=== PATIENT | female | born 1955 | race Asian ===

== ENCOUNTER 2020-02-06 03:06 | Inpatient (IN) | payer MEDICARE, OTHER ==
[~2020-02-06] VITALS: Ht 162.6 cm; Wt 85.6 kg
[2020-02-06] MEDS ORDERED: SODIUM CHLORIDE 0.9% 1,000 ML IV ONE (03:15)
[2020-02-06] MEDS ORDERED: IPRATROPIUM BROMIDE 0.5 MG/2.5 ML NEB SOLUTION NEB ONE (03:15)
[2020-02-06] MEDS ORDERED: MethylPREDNISolone SOD SUCC 125 MG/2 ML VIAL IVP ONE (03:15)
[2020-02-06] MEDS ORDERED: ALBUTEROL SULFATE 5 MG/ML 20 ML NEB SOLN [BULK] NEB ONE (03:15)
[2020-02-06] MEDS ORDERED: METO-558 PO (03:24)
[2020-02-06] MEDS ORDERED: HYDR-2924 PO (03:24)
[2020-02-06] MEDS ORDERED: FOLI-130 PO (03:24)
[2020-02-06] MEDS ORDERED: LEVO88TA4 PO (03:24)
[2020-02-06 03:32] LABS: HEMATOCRIT 26.8 % (36-46); HEMOGLOBIN 8.1 g/dL (12.0-16.0); MEAN CORPUSCULAR HEMOGLOBIN 26.9 pg (26.0-34.0); MEAN CORPUSCULAR HGB CONC 30.4 G/dL (31.0-37.0); MEAN CORPUSCULAR VOLUME 89 fL (80-100); PLATELET COUNT (AUTO) 295 K/uL (150-450); RED BLOOD CELL COUNT(AUTO) 3.03 MIL/uL (4.00-5.20); RED CELL DISTRIBUTION WIDTH 17.7 % (11.5-14.5)
[2020-02-06 04:02] LABS: LACTIC ACID 1.8 mmol/L (0.4-2.0)
[2020-02-06 04:08] LABS: BAND NEUTROPHILS % (MANUAL) 4 % (0-5); LYMPHOCYTES % (MANUAL) 7 % (22-44); MONOCYTES % (MANUAL) 4 % (2-9); SEGMENTED NEUTROPHILS % 85 % (40-70)
[2020-02-06] MEDS ORDERED: FUROSEMIDE 40 MG/4 ML VIAL IVP ONE ×2 (04:15→10:00)
[2020-02-06 04:26] LABS: ALBUMIN 3.3 g/dL (3.4-5.0); BILIRUBIN,TOTAL 0.5 mg/dL (0.1-1.0); CALCIUM, TOTAL 8.2 mg/dL (8.8-10.5); CREATININE 8.14 mg/dL (0.60-1.30); MAGNESIUM 1.6 mg/dL (1.80-2.40); TOTAL PROTEIN, SERUM 8.1 g/dL (6.4-8.2)
[2020-02-06 04:30] LABS: POTASSIUM 6.1 mmol/L (3.5-5.1)
[2020-02-06] MEDS ORDERED: DEXTROSE 50%-WATER 25 GM/50 ML SYRINGE IVP ONE ×2 (04:45→15:15)
[2020-02-06] MEDS ORDERED: SODIUM BICARBONATE [ADULT] 8.4% 50 MEQ/50 ML SYRINGE IVP ONE ×2 (04:45→11:00)
[2020-02-06] MEDS ORDERED: INSULIN REGULAR, HUMAN 100 UNITS/ML IVP ONE ×2 (04:45→15:15)
[2020-02-06] MEDS ORDERED: CALCIUM GLUCONATE 100 MG/ML 10 ML IVP ONE ×2 (04:45→10:00)
[2020-02-06] MEDS ORDERED: SODIUM ZIRCONIUM CYCLOSILICATE 5 GM POWDER PACKET PO ONE (04:45)
[2020-02-06] MEDS ORDERED: 0.9% SODIUM CHLORIDE 10 ML SYRINGE IVP PRN ×2 (05:00→05:15)
[2020-02-06] MEDS ORDERED: ONDANSETRON HCL 4 MG/2 ML VIAL IVP PRN ×2 (05:00→05:15)
[2020-02-06] MEDS ORDERED: ACETAMINOPHEN 325 MG TABLET PO PRN (05:00)
[2020-02-06] MEDS ORDERED: DEXTROSE 5%-WATER 50 ML IV ONE (05:05)
[2020-02-06] MEDS ORDERED: ZOLPIDEM TARTRATE 5 MG TABLET PO PRN (05:15)
[2020-02-06] MEDS ORDERED: IOVERSOL 350 MG/ML 100 ML VIAL ONE (05:24)
[2020-02-06 05:31] LABS: ABG A-A DIFF O2 29.2 mmHg (10-20.0); ABG BASE EXCESS -23.7 mmol/L (-2.0-3.0); ABG CARBOXYHEMOGLOBIN 1.1 % (0.0-1.5); ABG METHEMOGLOBIN 0.3 % (0.0-1.5); ABG OXYGEN CONTENT 11.2 mL/dL (15.0-23.0); ABG OXYGEN SATURATION 96.1 % (95.0-98.0); ABG OXYHEMOGLOBIN 94.8 % (94.0-100.0); ABG PCO2 24 mmHg (35-45); ABG TOTAL HEMOGLOBIN 8.3 G/dL (12.0-18.0); PO2, ARTERIAL BG 91.8 mmHg (79.0-87.0); SOURCE, BLOOD GAS ARTERIAL; TEMPERATURE, FAHRENHEIT, BG 97.1 FAHREN (96.0-98.6)
[2020-02-06 05:36] LABS: GLUCOSE,POINT OF CARE 264 MG/DL (70-110)
[2020-02-06 05:44] LABS: ABG HCO3 7.9 mmol/L (22.0-26.0); O2 DEVICE,BLOOD GAS ROOM AIR (ROOM AIR); SITE, BLOOD GAS LFT RADIAL
[2020-02-06] MEDS: LEVOTHYROXINE SODIUM 88 MCG TABLET PO SCH (05:52)
[2020-02-06] MEDS ORDERED: SODIUM BICARBONATE 150 MEQ in DEXTROSE 5%-WATER 1,000 ML IV ONE (06:30)
[2020-02-06] MEDS ORDERED: SODIUM BICARBONATE 150 MEQ in SODIUM CHLORIDE 0.9% 1,000 ML IV ONE (06:30)
[2020-02-06 07:11] LABS: % IRON SATURATION 12.9 % (22-44)
[2020-02-06] MEDS: SODIUM POLYSTYRENE SULFONATE 15 GM/60 ML SUSPENSION BOTTLE PR SCH ×2 (08:00→12:00)
[2020-02-06] MEDS: FOLIC ACID 1 MG TABLET PO SCH (08:19)
[2020-02-06] MEDS: PANTOPRAZOLE SODIUM 40 MG DR TABLET PO SCH (08:19)
[2020-02-06 08:51] LABS: PHOSPHORUS 8.8 mg/dL (2.5-4.9)
[2020-02-06] MEDS ORDERED: METOPROLOL SUCCINATE 50 MG ER TABLET PO SCH (09:00)
[2020-02-06] MEDS: LORazepam 2 MG/ML VIAL IVP PRN ×2 (10:05→21:07)
[2020-02-06] MEDS: EPOETIN ALFA 10,000 UNITS/ML 2 ML VIAL SQ SCH (10:41)
[2020-02-06 10:45] LABS: ABG BASE EXCESS -24.2 mmol/L (-2.0-3.0); ABG METHEMOGLOBIN 0.3 % (0.0-1.5); ABG OXYGEN CONTENT 12.4 mL/dL (15.0-23.0); ABG OXYGEN SATURATION 98.7 % (95.0-98.0); ABG OXYHEMOGLOBIN 97.4 % (94.0-100.0); ABG PCO2 30 mmHg (35-45); ABG TOTAL HEMOGLOBIN 8.8 G/dL (12.0-18.0); PO2, ARTERIAL BG 164.3 mmHg (79.0-87.0); SOURCE, BLOOD GAS ARTERIAL; TEMPERATURE, FAHRENHEIT, BG 98.6 FAHREN (96.0-98.6)
[2020-02-06 10:46] LABS: ABG HCO3 7.6 mmol/L (22.0-26.0); ABG PH 6.992 (7.35-7.450); O2 DEVICE,BLOOD GAS BIPAP (ROOM AIR); SITE, BLOOD GAS LFT RADIAL
[2020-02-06 11:01] LABS: ALBUMIN 3.2 g/dL (3.4-5.0); BILIRUBIN,TOTAL 0.4 mg/dL (0.1-1.0); CALCIUM, TOTAL 8.5 mg/dL (8.8-10.5); CREATININE 7.92 mg/dL (0.60-1.30); TOTAL PROTEIN, SERUM 8.4 g/dL (6.4-8.2)
[2020-02-06 11:05] LABS: POTASSIUM 6.2 mmol/L (3.5-5.1)
[2020-02-06] MEDS ORDERED: FentaNYL CITRATE-PF 100 MCG/2 ML VIAL ONE (11:26)
[2020-02-06] MEDS ORDERED: MIDAZOLAM HCL 2 MG/2 ML VIAL ONE (11:26)
[2020-02-06 11:30] VITALS: BP 128/73
[2020-02-06 11:32] LABS: PROTHROMBIN TIME 10.6 SEC (9.4-11.6)
[2020-02-06] MEDS ORDERED: MIDAZOLAM HCL 2 MG/2 ML VIAL IVP ONE (11:45)
[2020-02-06] MEDS ORDERED: FentaNYL CITRATE-PF 100 MCG/2 ML VIAL IVP ONE (11:45)
[2020-02-06] MEDS ORDERED: SODIUM CHLORIDE 0.9% 500 ML IV ONE ×2 (11:55→12:11)
[2020-02-06 12:00] VITALS: BP 206/102
[2020-02-06] MEDS ORDERED: NOREPINEPHRINE 4 MG/D5%-WATER 250 ML IV PRN (12:01)
[2020-02-06] MEDS ORDERED: HEPARIN SODIUM,PORCINE 100 UNITS/ML 5 ML VIAL IVP ONE ×2 (12:15)
[2020-02-06] MEDS: PROPOFOL 1000 MG/ISO-OSM 100 ML IV PRN ×3 (13:06→20:09)
[2020-02-06 14:00] VITALS: BP 109/46
[2020-02-06 14:56] LABS: ABG A-A DIFF O2 356.1 mmHg (10-20.0); ABG BASE EXCESS -21.8 mmol/L (-2.0-3.0); ABG CARBOXYHEMOGLOBIN 0.6 % (0.0-1.5); ABG METHEMOGLOBIN 0.1 % (0.0-1.5); ABG OXYGEN SATURATION 99.4 % (95.0-98.0); ABG OXYHEMOGLOBIN 98.7 % (94.0-100.0); ABG PCO2 41 mmHg (35-45); ABG TOTAL HEMOGLOBIN 9.5 G/dL (12.0-18.0); PO2, ARTERIAL BG 316.5 mmHg (79.0-87.0); SOURCE, BLOOD GAS ARTERIAL
[2020-02-06 14:59] LABS: ABG PH 6.989 (7.35-7.450); O2 DEVICE,BLOOD GAS VENTILATOR (ROOM AIR); PEEP,BG 5 cm H2O; SITE, BLOOD GAS ARTERIAL LINE; SPONTANEOUS VT, BG 398 ml; VT, ABG 400 ml
[2020-02-06 16:00] VITALS: BP 130/74
[2020-02-06] MEDS: HEPARIN SODIUM,PORCINE 5,000 UNITS/ML VIAL SQ SCH (16:27)
[2020-02-06 16:54] LABS: ABG A-A DIFF O2 204.9 mmHg (10-20.0); ABG BASE EXCESS -2.4 mmol/L (-2.0-3.0); ABG CARBOXYHEMOGLOBIN 0.5 % (0.0-1.5); ABG HCO3 22.8 mmol/L (22.0-26.0); ABG METHEMOGLOBIN 0.3 % (0.0-1.5); ABG OXYGEN CONTENT 13.3 mL/dL (15.0-23.0); ABG OXYGEN SATURATION 98.9 % (95.0-98.0); ABG OXYHEMOGLOBIN 98.1 % (94.0-100.0); ABG PCO2 36 mmHg (35-45); ABG PH 7.406 (7.35-7.450); ABG TOTAL HEMOGLOBIN 9.3 G/dL (12.0-18.0); O2 DEVICE,BLOOD GAS VENTILATOR (ROOM AIR); PEEP,BG 5 cm H2O; PO2, ARTERIAL BG 183.7 mmHg (79.0-87.0); SITE, BLOOD GAS ARTERIAL LINE; SOURCE, BLOOD GAS ARTERIAL; TEMPERATURE, FAHRENHEIT, BG 97.6 FAHREN (96.0-98.6); VT, ABG 400 ml
[2020-02-06] MEDS ORDERED: HEPARIN SODIUM,PORCINE 1,000 UNITS/ML VIAL ONE (17:22)
[2020-02-06 20:00] VITALS: BP 127/63
[2020-02-06] MEDS ORDERED: *CLINICAL-RX DOSING [ENTER DRUG IN COMMENTS] CLINICAL ONE (21:00)
[2020-02-06] MEDS ORDERED: SODIUM CHLORIDE 0.9% 250 ML IV ONE (22:12)
[2020-02-07] VITALS (9 sets, daily range): BP systolic 103–191; BP diastolic 65–86
[2020-02-07] MEDS: LevETIRAcetam 500 MG in DEXTROSE 5%-WATER 100 ML IV SCH ×2 (00:01→22:35)
[2020-02-07] MEDS: HEPARIN SODIUM,PORCINE 5,000 UNITS/ML VIAL SQ SCH ×3 (00:03→16:22)
[2020-02-07] MEDS ORDERED: ROCURONIUM BROMIDE 10 MG/ML 5 ML VIAL IVP ONE (06:11)
[2020-02-07] MEDS ORDERED: LIDOCAINE/PF 2% 5 ML VIAL IM ONE (06:11)
[2020-02-07] MEDS ORDERED: ETOMIDATE 2 MG/ML 10 ML VIAL IVP ONE (06:11)
[2020-02-07 06:19] LABS: BASOPHILS % (AUTO) 0.3 % (0.0-2.0); EOSINOPHILS % (AUTO) 0 % (1.0-6.0); LYMPHOCYTES # (AUTO) 0.5 K/uL (1.0-4.8); LYMPHOCYTES % (AUTO) 4.8 % (22.0-44.0); MEAN CORPUSCULAR HEMOGLOBIN 27.8 pg (26.0-34.0); MEAN CORPUSCULAR HGB CONC 33.5 G/dL (31.0-37.0); MEAN CORPUSCULAR VOLUME 83 fL (80-100); MONOCYTES % (AUTO) 10.4 % (2.0-9.0); NEUTROPHILS % (AUTO) 84.5 % (40.0-70.0); PLATELET COUNT (AUTO) 219 K/uL (150-450); RED BLOOD CELL COUNT(AUTO) 2.35 MIL/uL (4.00-5.20); RED CELL DISTRIBUTION WIDTH 16.2 % (11.5-14.5)
[2020-02-07 06:43] LABS: ALBUMIN 2.2 g/dL (3.4-5.0); BILIRUBIN,TOTAL 0.5 mg/dL (0.1-1.0); CALCIUM, TOTAL 8.4 mg/dL (8.8-10.5); CREATININE 4.33 mg/dL (0.60-1.30); MAGNESIUM 1.8 mg/dL (1.80-2.40); POTASSIUM 3.6 mmol/L (3.5-5.1); THYROID STIMULATING HORMONE 18.01 uIU/mL (0.36-3.74); TOTAL PROTEIN, SERUM 5.9 g/dL (6.4-8.2)
[2020-02-07 07:20] LABS: HEMOGLOBIN 6.5 g/dL (12.0-16.0)
[2020-02-07 07:21] LABS: HEMATOCRIT 19.5 % (36-46)
[2020-02-07] MEDS: LEVOTHYROXINE SODIUM 88 MCG TABLET PO SCH (07:48)
[2020-02-07] MEDS: FOLIC ACID 1 MG TABLET PO SCH (08:36)
[2020-02-07] MEDS: PANTOPRAZOLE SODIUM 40 MG DR TABLET PO SCH (08:36)
[2020-02-07] MEDS: PROPOFOL 1000 MG/ISO-OSM 100 ML IV PRN ×4 (08:52→20:30)
[2020-02-07 09:19] LABS: BASOPHILS % (AUTO) 0.2 % (0.0-2.0); EOSINOPHILS % (AUTO) 0 % (1.0-6.0); LYMPHOCYTES # (AUTO) 0.5 K/uL (1.0-4.8); MEAN CORPUSCULAR HGB CONC 32.4 G/dL (31.0-37.0); MEAN CORPUSCULAR VOLUME 83 fL (80-100); MONOCYTES # (AUTO) 0.8 K/uL (0.1-1.0); MONOCYTES % (AUTO) 8.7 % (2.0-9.0); NEUTROPHILS # (AUTO) 8.2 K/uL (1.8-7.7); PLATELET COUNT (AUTO) 223 K/uL (150-450); RED BLOOD CELL COUNT(AUTO) 2.34 MIL/uL (4.00-5.20); RED CELL DISTRIBUTION WIDTH 16.5 % (11.5-14.5)
[2020-02-07 09:22] LABS: HEMATOCRIT 19.5 % (36-46); HEMOGLOBIN 6.3 g/dL (12.0-16.0); NEUTROPHILS % (AUTO) 86.1 % (40.0-70.0)
[2020-02-07] MEDS ORDERED: SODIUM CHLORIDE 0.9% 100 ML ONE (11:55)
[2020-02-07] MEDS ORDERED: IOVERSOL 350 MG/ML 100 ML VIAL ONE (11:55)
[2020-02-07] MEDS: LORazepam 2 MG/ML VIAL IVP PRN (16:22)
[2020-02-07 20:39] LABS: HEMATOCRIT 24.6 % (36-46); HEMOGLOBIN 8.1 g/dL (12.0-16.0)
[2020-02-07] MEDS ORDERED: SODIUM CHLORIDE 0.9% 250 ML IV ONE (22:06)
[2020-02-07] MEDS: FentaNYL CITRATE PF 500 MCG in DEXTROSE 5%-WATER 90 ML IV PRN (22:14)
[2020-02-07] MEDS: MIDAZOLAM HCL 200 MG in DEXTROSE 5%-WATER 160 ML IV PRN (22:17)
[2020-02-07] MEDS ORDERED: METOPROLOL TARTRATE 25 MG TABLET PO ONE (23:45)
[2020-02-08] VITALS (7 sets, daily range): BP systolic 145–204; BP diastolic 80–98
[2020-02-08] MEDS: HEPARIN SODIUM,PORCINE 5,000 UNITS/ML VIAL SQ SCH ×3 (00:15→16:01)
[2020-02-08] MEDS: PROPOFOL 1000 MG/ISO-OSM 100 ML IV PRN ×6 (01:07→21:01)
[2020-02-08] MEDS: FentaNYL CITRATE PF 500 MCG in DEXTROSE 5%-WATER 90 ML IV PRN ×5 (04:31→23:15)
[2020-02-08] MEDS: LEVOTHYROXINE SODIUM 88 MCG TABLET PO SCH (05:55)
[2020-02-08 06:39] LABS: BASOPHILS % (AUTO) 0.1 % (0.0-2.0); EOSINOPHILS % (AUTO) 0.1 % (1.0-6.0); HEMATOCRIT 22.5 % (36-46); HEMOGLOBIN 7.4 g/dL (12.0-16.0); LYMPHOCYTES # (AUTO) 0.7 K/uL (1.0-4.8); LYMPHOCYTES % (AUTO) 8.4 % (22.0-44.0); MEAN CORPUSCULAR HEMOGLOBIN 27.7 pg (26.0-34.0); MEAN CORPUSCULAR HGB CONC 33.1 G/dL (31.0-37.0); MEAN CORPUSCULAR VOLUME 84 fL (80-100); MONOCYTES # (AUTO) 0.8 K/uL (0.1-1.0); MONOCYTES % (AUTO) 9.9 % (2.0-9.0); NEUTROPHILS # (AUTO) 6.9 K/uL (1.8-7.7); NEUTROPHILS % (AUTO) 81.5 % (40.0-70.0); PLATELET COUNT (AUTO) 224 K/uL (150-450); RED BLOOD CELL COUNT(AUTO) 2.68 MIL/uL (4.00-5.20)
[2020-02-08 07:13] LABS: CALCIUM, TOTAL 8.4 mg/dL (8.8-10.5); CREATININE 3.14 mg/dL (0.60-1.30); POTASSIUM 3.2 mmol/L (3.5-5.1)
[2020-02-08] MEDS: FOLIC ACID 1 MG TABLET PO SCH (08:06)
[2020-02-08] MEDS: PANTOPRAZOLE SODIUM 40 MG DR TABLET PO SCH (08:06)
[2020-02-08] MEDS: HydrALAZINE HCL 50 MG TABLET PO SCH ×3 (08:06→21:07)
[2020-02-08] MEDS: METOPROLOL TARTRATE 25 MG TABLET PO SCH ×2 (08:07→21:06)
[2020-02-08] MEDS ORDERED: ENALAPRILAT DIHYDRATE 1.25 MG/ML VIAL IVP PRN (14:45)
[2020-02-08] MEDS: AmLODIPine BESYLATE 5 MG TABLET PO SCH ×2 (14:59→21:07)
[2020-02-08] MEDS ORDERED: VANCOMYCIN HCL 1 GM/D5% WATER 200 ML IV PRN (15:00)
[2020-02-08] MEDS ORDERED: VANCOMYCIN HCL 1.5 GM in DEXTROSE 5%-WATER 250 ML IV ONE (15:00)
[2020-02-08] MEDS: MIDAZOLAM HCL 200 MG in DEXTROSE 5%-WATER 160 ML IV PRN (17:05)
[2020-02-08] MEDS: ACETAMINOPHEN 325 MG TABLET PO PRN (21:06)
[2020-02-08] MEDS: LevETIRAcetam 500 MG in DEXTROSE 5%-WATER 100 ML IV SCH (23:57)
[2020-02-09] VITALS: BP 147/76
[2020-02-09] MEDS: HEPARIN SODIUM,PORCINE 5,000 UNITS/ML VIAL SQ SCH ×4 (00:19→23:59)
[2020-02-09] MEDS: FentaNYL CITRATE PF 500 MCG in DEXTROSE 5%-WATER 90 ML IV PRN ×5 (03:47→21:37)
[2020-02-09 04:00] VITALS: BP 161/79
[2020-02-09] MEDS: LEVOTHYROXINE SODIUM 88 MCG TABLET PO SCH (06:31)
[2020-02-09 06:53] LABS: BASOPHILS % (AUTO) 0.2 % (0.0-2.0); EOSINOPHILS % (AUTO) 0.8 % (1.0-6.0); HEMATOCRIT 29.1 % (36-46); HEMOGLOBIN 8.9 g/dL (12.0-16.0); LYMPHOCYTES # (AUTO) 0.8 K/uL (1.0-4.8); LYMPHOCYTES % (AUTO) 5.7 % (22.0-44.0); MEAN CORPUSCULAR HEMOGLOBIN 26.3 pg (26.0-34.0); MEAN CORPUSCULAR HGB CONC 30.6 G/dL (31.0-37.0); MEAN CORPUSCULAR VOLUME 86 fL (80-100); MONOCYTES # (AUTO) 1.8 K/uL (0.1-1.0); MONOCYTES % (AUTO) 12.5 % (2.0-9.0); NEUTROPHILS # (AUTO) 11.6 K/uL (1.8-7.7); NEUTROPHILS % (AUTO) 80.8 % (40.0-70.0); PLATELET COUNT (AUTO) 237 K/uL (150-450); RED BLOOD CELL COUNT(AUTO) 3.38 MIL/uL (4.00-5.20); RED CELL DISTRIBUTION WIDTH 16.3 % (11.5-14.5)
[2020-02-09 07:08] LABS: ALBUMIN 2.4 g/dL (3.4-5.0); BILIRUBIN,TOTAL 0.6 mg/dL (0.1-1.0); CALCIUM, TOTAL 8.2 mg/dL (8.8-10.5); MAGNESIUM 1.8 mg/dL (1.80-2.40); PHOSPHORUS 4.6 mg/dL (2.5-4.9); POTASSIUM 3.6 mmol/L (3.5-5.1); TOTAL PROTEIN, SERUM 7.1 g/dL (6.4-8.2)
[2020-02-09] MEDS: EPOETIN ALFA 10,000 UNITS/ML 2 ML VIAL SQ SCH (08:25)
[2020-02-09] MEDS: FOLIC ACID 1 MG TABLET PO SCH (08:25)
[2020-02-09] MEDS: AmLODIPine BESYLATE 10 MG TABLET PO SCH (08:25)
[2020-02-09] MEDS: HydrALAZINE HCL 50 MG TABLET PO SCH ×4 (08:26→22:37)
[2020-02-09] MEDS: METOPROLOL TARTRATE 25 MG TABLET PO SCH ×2 (08:26→20:56)
[2020-02-09] MEDS: PANTOPRAZOLE SODIUM 40 MG DR TABLET PO SCH (08:26)
[2020-02-09] MEDS: ACETAMINOPHEN 325 MG TABLET PO PRN (10:51)
[2020-02-09] MEDS ORDERED: PIPERACILLIN SODIUM/TAZOBACTAM 0.75 GM in DEXTROSE 5%-WATER 50 ML IV PRN (12:30)
[2020-02-09] MEDS: PIPERACILLIN SODIUM/TAZOBACTAM 2.25 GM in DEXTROSE 5%-WATER 50 ML IV SCH ×2 (12:42→20:56)
[2020-02-09] MEDS ORDERED: SODIUM CHLORIDE 0.9% 2,000 ML ONE (15:32)
[2020-02-09] MEDS: MIDAZOLAM HCL 200 MG in DEXTROSE 5%-WATER 160 ML IV PRN (19:51)
[2020-02-09 20:00] VITALS: BP 137/70
[2020-02-09] MEDS: LevETIRAcetam 500 MG in DEXTROSE 5%-WATER 100 ML IV SCH (22:46)
[2020-02-10] VITALS: BP 119/65
[2020-02-10] MEDS ORDERED: SODIUM CHLORIDE 0.9% 500 ML IV ONE ×2 (02:47→23:26)
[2020-02-10 04:00] VITALS: BP 109/56
[2020-02-10] MEDS: PIPERACILLIN SODIUM/TAZOBACTAM 2.25 GM in DEXTROSE 5%-WATER 50 ML IV SCH ×3 (04:40→21:29)
[2020-02-10] MEDS: FentaNYL CITRATE PF 500 MCG in DEXTROSE 5%-WATER 90 ML IV PRN (04:41)
[2020-02-10] MEDS: LEVOTHYROXINE SODIUM 88 MCG TABLET PO SCH (05:52)
[2020-02-10 06:42] LABS: HEMATOCRIT 24.2 % (36-46); HEMOGLOBIN 7.9 g/dL (12.0-16.0); MEAN CORPUSCULAR HEMOGLOBIN 27.6 pg (26.0-34.0); MEAN CORPUSCULAR HGB CONC 32.5 G/dL (31.0-37.0); MEAN CORPUSCULAR VOLUME 85 fL (80-100); PLATELET COUNT (AUTO) 226 K/uL (150-450); RED BLOOD CELL COUNT(AUTO) 2.86 MIL/uL (4.00-5.20)
[2020-02-10 07:22] LABS: ALBUMIN 1.9 g/dL (3.4-5.0); BILIRUBIN,TOTAL 0.7 mg/dL (0.1-1.0); CALCIUM, TOTAL 8.7 mg/dL (8.8-10.5); MAGNESIUM 1.7 mg/dL (1.80-2.40); POTASSIUM 3.6 mmol/L (3.5-5.1); TOTAL PROTEIN, SERUM 6.3 g/dL (6.4-8.2); VANCOMYCIN,RANDOM 15.4 mcg/mL (25.0-50.0)
[2020-02-10] MEDS: FOLIC ACID 1 MG TABLET PO SCH (07:30)
[2020-02-10] MEDS: AmLODIPine BESYLATE 10 MG TABLET PO SCH (07:30)
[2020-02-10] MEDS: PANTOPRAZOLE SODIUM 40 MG DR TABLET PO SCH (07:30)
[2020-02-10] MEDS: HydrALAZINE HCL 50 MG TABLET PO SCH ×3 (07:30→21:28)
[2020-02-10] MEDS: METOPROLOL TARTRATE 25 MG TABLET PO SCH ×2 (07:31→21:28)
[2020-02-10] MEDS: HEPARIN SODIUM,PORCINE 5,000 UNITS/ML VIAL SQ SCH ×2 (07:31→15:26)
[2020-02-10 08:00] VITALS: BP 126/62
[2020-02-10] MEDS ORDERED: MAGNESIUM SULFATE 1 GM in DEXTROSE 5%-WATER 50 ML IV ONE (08:45)
[2020-02-10] MEDS: ACETAMINOPHEN 325 MG TABLET PO PRN (08:56)
[2020-02-10 12:00] VITALS: BP 115/59
[2020-02-10 12:53] LABS: BAND NEUTROPHILS % (MANUAL) 32 % (0-5); EOSINOPHILS % (MANUAL) 1 % (1-6); LYMPHOCYTES % (MANUAL) 3 % (22-44); MONOCYTES % (MANUAL) 7 % (2-9); SEGMENTED NEUTROPHILS % 57 % (40-70)
[2020-02-10] MEDS ORDERED: VANCOMYCIN HCL 1 GM/D5% WATER 200 ML IV ONE (13:00)
[2020-02-10 16:00] VITALS: BP 123/69
[2020-02-10 16:36] LABS: APPEARANCE,URINE CLOUDY (CLEAR); GLUCOSE, URINE (UA) NEGATIVE (NEGATIVE); KETONES,URINE TRACE mg/dL (NEGATIVE); LEUKOCYTE ESTERASE ,URINE LARGE (NEGATIVE); NITRATE,URINE NEGATIVE (NEGATIVE); OCCULT BLOOD,URINE NEGATIVE (NEGATIVE); PH,URINE 5.5 (5.0-8.0); PROTEIN,URINE SEE CONFIRM (NEGATIVE); UROBILINOGEN,URINE 0.2 mg/dL (<=1.0)
[2020-02-10 16:50] LABS: BILIRUBIN,URINE PRELIM. POSITIVE (NEGATIVE)
[2020-02-10] MEDS ORDERED: HEPARIN SODIUM,PORCINE 1,000 UNITS/ML VIAL IVP ONE ×2 (16:53→16:55)
[2020-02-10 17:02] LABS: BACTERIA,URINE Moderate /HPF (None Seen); RBC,URINE 0-2 /HPF (0-2); SQUAMOUS EPITHELIAL CELL,UR Few /LPF (None Seen); SULFOSALICYLIC ACID,URINE 3+ (Negative)
[2020-02-10] MEDS ORDERED: LEVOFLOXACIN 750 MG/D5% WATER 150 ML IV ONE (18:45)
[2020-02-10 20:00] VITALS: BP 151/74
[2020-02-10] MEDS: LevETIRAcetam 500 MG in DEXTROSE 5%-WATER 100 ML IV SCH (22:44)
[2020-02-11] VITALS: BP 156/81
[2020-02-11] MEDS ORDERED: SODIUM CHLORIDE 0.9% 250 ML IV ONE (03:25)
[2020-02-11 04:00] VITALS: BP 163/94
[2020-02-11] MEDS: PIPERACILLIN SODIUM/TAZOBACTAM 2.25 GM in DEXTROSE 5%-WATER 50 ML IV SCH ×3 (05:23→21:31)
[2020-02-11 05:38] LABS: BASOPHILS % (AUTO) 0.1 % (0.0-2.0); EOSINOPHILS % (AUTO) 2.8 % (1.0-6.0); HEMATOCRIT 25.1 % (36-46); LYMPHOCYTES # (AUTO) 1.3 K/uL (1.0-4.8); LYMPHOCYTES % (AUTO) 6.5 % (22.0-44.0); MEAN CORPUSCULAR HGB CONC 31.7 G/dL (31.0-37.0); MEAN CORPUSCULAR VOLUME 85 fL (80-100); MONOCYTES # (AUTO) 0.8 K/uL (0.1-1.0); MONOCYTES % (AUTO) 3.9 % (2.0-9.0); NEUTROPHILS # (AUTO) 17.9 K/uL (1.8-7.7); PLATELET COUNT (AUTO) 248 K/uL (150-450); RED BLOOD CELL COUNT(AUTO) 2.95 MIL/uL (4.00-5.20); RED CELL DISTRIBUTION WIDTH 15.8 % (11.5-14.5)
[2020-02-11 05:53] LABS: CREATININE 4.14 mg/dL (0.60-1.30); POTASSIUM 3.8 mmol/L (3.5-5.1)
[2020-02-11 05:54] LABS: ALBUMIN 1.9 g/dL (3.4-5.0); BILIRUBIN,TOTAL 0.7 mg/dL (0.1-1.0); CALCIUM, TOTAL 8.5 mg/dL (8.8-10.5); MAGNESIUM 2.2 mg/dL (1.80-2.40); TOTAL PROTEIN, SERUM 6.8 g/dL (6.4-8.2)
[2020-02-11 06:06] LABS: NEUTROPHILS % (AUTO) 86.7 % (40.0-70.0)
[2020-02-11] MEDS: LEVOTHYROXINE SODIUM 88 MCG TABLET PO SCH (06:34)
[2020-02-11] MEDS: EPOETIN ALFA 10,000 UNITS/ML 2 ML VIAL SQ SCH (07:26)
[2020-02-11] MEDS: HEPARIN SODIUM,PORCINE 5,000 UNITS/ML VIAL SQ SCH ×3 (07:26→17:58)
[2020-02-11] MEDS: FOLIC ACID 1 MG TABLET PO SCH (07:27)
[2020-02-11] MEDS: HydrALAZINE HCL 50 MG TABLET PO SCH ×3 (07:27→21:32)
[2020-02-11] MEDS: METOPROLOL TARTRATE 25 MG TABLET PO SCH ×2 (07:27→21:32)
[2020-02-11] MEDS: AmLODIPine BESYLATE 10 MG TABLET PO SCH (07:27)
[2020-02-11] MEDS: PANTOPRAZOLE SODIUM 40 MG DR TABLET PO SCH (07:28)
[2020-02-11 08:00] VITALS: BP 156/79
[2020-02-11 12:00] VITALS: BP 164/80
[2020-02-11 14:55] LABS: C-REACTIVE PROTEIN QUANT 35.13 mg/dL (0.00-0.30)
[2020-02-11 16:00] VITALS: BP 153/76
[2020-02-11] MEDS ORDERED: HEPARIN SODIUM,PORCINE 1,000 UNITS/ML VIAL ONE (17:30)
[2020-02-11 20:00] VITALS: BP 168/72
[2020-02-11] MEDS: LORazepam 2 MG/ML VIAL IVP PRN (21:33)
[2020-02-11] MEDS: LevETIRAcetam 500 MG in DEXTROSE 5%-WATER 100 ML IV SCH (22:28)
[2020-02-12] VITALS: BP 160/90
[2020-02-12] MEDS: HEPARIN SODIUM,PORCINE 5,000 UNITS/ML VIAL SQ SCH ×4 (00:35→23:43)
[2020-02-12] MEDS: ZOLPIDEM TARTRATE 10 MG TABLET PO PRN (01:39)
[2020-02-12] MEDS: LORazepam 2 MG/ML VIAL IVP PRN ×2 (03:53→23:28)
[2020-02-12] MEDS: ACETAMINOPHEN 325 MG TABLET PO PRN (03:53)
[2020-02-12 04:00] VITALS: BP 165/90
[2020-02-12 05:32] LABS: BASOPHILS % (AUTO) 0.1 % (0.0-2.0); EOSINOPHILS % (AUTO) 3.3 % (1.0-6.0); HEMATOCRIT 26.3 % (36-46); HEMOGLOBIN 8.3 g/dL (12.0-16.0); LYMPHOCYTES # (AUTO) 0.9 K/uL (1.0-4.8); LYMPHOCYTES % (AUTO) 4.6 % (22.0-44.0); MEAN CORPUSCULAR HEMOGLOBIN 26.9 pg (26.0-34.0); MEAN CORPUSCULAR HGB CONC 31.5 G/dL (31.0-37.0); MEAN CORPUSCULAR VOLUME 85 fL (80-100); MONOCYTES # (AUTO) 1.1 K/uL (0.1-1.0); MONOCYTES % (AUTO) 5.2 % (2.0-9.0); NEUTROPHILS # (AUTO) 17.8 K/uL (1.8-7.7); PLATELET COUNT (AUTO) 277 K/uL (150-450); RED BLOOD CELL COUNT(AUTO) 3.08 MIL/uL (4.00-5.20); RED CELL DISTRIBUTION WIDTH 15.7 % (11.5-14.5)
[2020-02-12] MEDS: PIPERACILLIN SODIUM/TAZOBACTAM 2.25 GM in DEXTROSE 5%-WATER 50 ML IV SCH (05:43)
[2020-02-12] MEDS: LEVOTHYROXINE SODIUM 88 MCG TABLET PO SCH (05:43)
[2020-02-12 05:53] LABS: ALBUMIN 2.1 g/dL (3.4-5.0); BILIRUBIN,TOTAL 0.5 mg/dL (0.1-1.0); CALCIUM, TOTAL 8.7 mg/dL (8.8-10.5); CREATININE 3.2 mg/dL (0.60-1.30); POTASSIUM 3.6 mmol/L (3.5-5.1)
[2020-02-12 06:05] LABS: NEUTROPHILS % (AUTO) 86.8 % (40.0-70.0)
[2020-02-12] MEDS: DOCUSATE SODIUM 100 MG/10 ML LIQUID UDCUP GT SCH (07:17)
[2020-02-12] MEDS: AmLODIPine BESYLATE 10 MG TABLET PO SCH (07:17)
[2020-02-12] MEDS: FOLIC ACID 1 MG TABLET PO SCH (07:17)
[2020-02-12] MEDS: HydrALAZINE HCL 50 MG TABLET PO SCH ×3 (07:17→20:53)
[2020-02-12] MEDS: PANTOPRAZOLE SODIUM 40 MG DR TABLET PO SCH (07:17)
[2020-02-12] MEDS: METOPROLOL TARTRATE 25 MG TABLET PO SCH ×2 (07:17→20:53)
[2020-02-12 08:00] VITALS: BP 157/88
[2020-02-12] MEDS ORDERED: VANCOMYCIN HCL 1 GM/D5% WATER 200 ML IV PRN (11:00)
[2020-02-12] MEDS: NAFCILLIN SODIUM 2 GM in DEXTROSE 5%-WATER 100 ML IV SCH ×4 (11:23→23:03)
[2020-02-12 12:00] VITALS: BP 156/90
[2020-02-12] MEDS ORDERED: VANCOMYCIN HCL 1 GM/D5% WATER 200 ML IV ONE (12:00)
[2020-02-12 16:00] VITALS: BP 145/82
[2020-02-12] MEDS: DEXMEDETOMIDINE HCL 200 MCG in SODIUM CHLORIDE 0.9% 48 ML IV PRN ×2 (17:14→20:53)
[2020-02-12 20:00] VITALS: BP 164/85
[2020-02-12] MEDS: LEVOFLOXACIN 500 MG/D5% WATER 100 ML IV SCH (20:49)
[2020-02-12] MEDS ORDERED: SODIUM CHLORIDE 0.9% 250 ML IV ONE (21:09)
[2020-02-12] MEDS: LevETIRAcetam 500 MG in DEXTROSE 5%-WATER 100 ML IV SCH (23:03)
[2020-02-13] VITALS (7 sets, daily range): BP systolic 164–204; BP diastolic 84–99
[2020-02-13] MEDS: NAFCILLIN SODIUM 2 GM in DEXTROSE 5%-WATER 100 ML IV SCH ×6 (03:00→23:49)
[2020-02-13] MEDS: MORPHINE SULFATE 2 MG/ML SYRINGE IVP PRN ×2 (03:05→08:10)
[2020-02-13 05:54] LABS: BASOPHILS % (AUTO) 0.2 % (0.0-2.0); EOSINOPHILS % (AUTO) 5.3 % (1.0-6.0); HEMATOCRIT 27.2 % (36-46); HEMOGLOBIN 8.3 g/dL (12.0-16.0); LYMPHOCYTES # (AUTO) 0.9 K/uL (1.0-4.8); LYMPHOCYTES % (AUTO) 5.2 % (22.0-44.0); MEAN CORPUSCULAR HEMOGLOBIN 26.1 pg (26.0-34.0); MEAN CORPUSCULAR HGB CONC 30.7 G/dL (31.0-37.0); MEAN CORPUSCULAR VOLUME 85 fL (80-100); MONOCYTES # (AUTO) 1.3 K/uL (0.1-1.0); MONOCYTES % (AUTO) 8.1 % (2.0-9.0); NEUTROPHILS # (AUTO) 13.3 K/uL (1.8-7.7); NEUTROPHILS % (AUTO) 81.2 % (40.0-70.0); PLATELET COUNT (AUTO) 276 K/uL (150-450); RED BLOOD CELL COUNT(AUTO) 3.19 MIL/uL (4.00-5.20); RED CELL DISTRIBUTION WIDTH 15.8 % (11.5-14.5)
[2020-02-13] MEDS ORDERED: SODIUM CHLORIDE 0.9% 2,000 ML ONE (06:32)
[2020-02-13 06:36] LABS: ALBUMIN 2.1 g/dL (3.4-5.0); BILIRUBIN,TOTAL 1.6 mg/dL (0.1-1.0); C-REACTIVE PROTEIN QUANT 8.9 mg/dL (0.00-0.30); CALCIUM, TOTAL 8.5 mg/dL (8.8-10.5); CREATININE 4.15 mg/dL (0.60-1.30); MAGNESIUM 1.9 mg/dL (1.80-2.40); PHOSPHORUS 2.3 mg/dL (2.5-4.9); POTASSIUM 3.2 mmol/L (3.5-5.1); TOTAL PROTEIN, SERUM 6.8 g/dL (6.4-8.2)
[2020-02-13] MEDS: LEVOTHYROXINE SODIUM 88 MCG TABLET PO SCH (06:51)
[2020-02-13] MEDS: HEPARIN SODIUM,PORCINE 5,000 UNITS/ML VIAL SQ SCH ×3 (08:38→23:53)
[2020-02-13] MEDS: EPOETIN ALFA 10,000 UNITS/ML 2 ML VIAL SQ SCH (08:38)
[2020-02-13] MEDS: METOPROLOL TARTRATE 25 MG TABLET PO SCH ×2 (08:38→20:58)
[2020-02-13] MEDS: AmLODIPine BESYLATE 10 MG TABLET PO SCH (08:38)
[2020-02-13] MEDS: FOLIC ACID 1 MG TABLET PO SCH (08:39)
[2020-02-13] MEDS: HydrALAZINE HCL 50 MG TABLET PO SCH ×3 (08:39→23:51)
[2020-02-13] MEDS: PANTOPRAZOLE SODIUM 40 MG DR TABLET PO SCH (08:40)
[2020-02-13] MEDS: DOCUSATE SODIUM 100 MG/10 ML LIQUID UDCUP GT SCH (09:00)
[2020-02-13] MEDS: -POST HEMODIALYSIS NOTE- MISC SCH (10:09)
[2020-02-13] MEDS: LORazepam 2 MG/ML VIAL IVP PRN (14:00)
[2020-02-13] MEDS: HydrALAZINE HCL 20 MG/ML VIAL IVP PRN (14:32)
[2020-02-13] MEDS: DEXMEDETOMIDINE HCL 200 MCG in SODIUM CHLORIDE 0.9% 48 ML IV PRN (15:30)
[2020-02-13] MEDS ORDERED: HEPARIN SODIUM,PORCINE 1,000 UNITS/ML VIAL IVP ONE (16:44)
[2020-02-13 19:51] LABS: ABG A-A DIFF O2 72.3 mmHg (10-20.0); ABG BASE EXCESS 0.8 mmol/L (-2.0-3.0); ABG CARBOXYHEMOGLOBIN 1.1 % (0.0-1.5); ABG HCO3 25.6 mmol/L (22.0-26.0); ABG METHEMOGLOBIN 0.3 % (0.0-1.5); ABG OXYGEN CONTENT 17.1 mL/dL (15.0-23.0); ABG OXYHEMOGLOBIN 96.6 % (94.0-100.0); ABG PCO2 34 mmHg (35-45); ABG PH 7.476 (7.35-7.450); ABG TOTAL HEMOGLOBIN 12.5 G/dL (12.0-18.0); PO2, ARTERIAL BG 101.7 mmHg (79.0-87.0); SOURCE, BLOOD GAS ARTERIAL; TEMPERATURE, FAHRENHEIT, BG 99.2 FAHREN (96.0-98.6)
[2020-02-13 20:15] LABS: SITE, BLOOD GAS A-LINE
[2020-02-13 20:16] LABS: CPAP, BG 5 cm H2O; PRESSURE SUPPORT, BG 8 cm H2O
[2020-02-13] MEDS: LevETIRAcetam 500 MG in DEXTROSE 5%-WATER 100 ML IV SCH (22:49)
[2020-02-14] VITALS: BP 189/97
[2020-02-14] MEDS: DEXMEDETOMIDINE HCL 200 MCG in SODIUM CHLORIDE 0.9% 48 ML IV PRN (00:35)
[2020-02-14] MEDS: LORazepam 2 MG/ML VIAL IVP PRN (00:35)
[2020-02-14] MEDS: HydrALAZINE HCL 20 MG/ML VIAL IVP PRN ×2 (01:58→23:47)
[2020-02-14] MEDS: NAFCILLIN SODIUM 2 GM in DEXTROSE 5%-WATER 100 ML IV SCH ×2 (03:30→06:03)
[2020-02-14 04:00] VITALS: BP_SYST 137; BP_SYST 168; BP_DIAS 74; BP_DIAS 80
[2020-02-14 05:32] LABS: BASOPHILS % (AUTO) 0.3 % (0.0-2.0); EOSINOPHILS % (AUTO) 6.8 % (1.0-6.0); HEMATOCRIT 26.7 % (36-46); HEMOGLOBIN 8.1 g/dL (12.0-16.0); MEAN CORPUSCULAR HGB CONC 30.5 G/dL (31.0-37.0); MEAN CORPUSCULAR VOLUME 85 fL (80-100); MONOCYTES # (AUTO) 1.4 K/uL (0.1-1.0); NEUTROPHILS # (AUTO) 10.4 K/uL (1.8-7.7); NEUTROPHILS % (AUTO) 75.9 % (40.0-70.0); PLATELET COUNT (AUTO) 276 K/uL (150-450); RED BLOOD CELL COUNT(AUTO) 3.13 MIL/uL (4.00-5.20); RED CELL DISTRIBUTION WIDTH 15.8 % (11.5-14.5)
[2020-02-14 05:41] LABS: BILIRUBIN,TOTAL 2.1 mg/dL (0.1-1.0); CALCIUM, TOTAL 8.2 mg/dL (8.8-10.5); CREATININE 3.42 mg/dL (0.60-1.30); TOTAL PROTEIN, SERUM 6.5 g/dL (6.4-8.2)
[2020-02-14] MEDS: HydrALAZINE HCL 50 MG TABLET PO SCH ×4 (06:03→23:42)
[2020-02-14] MEDS: LEVOTHYROXINE SODIUM 88 MCG TABLET PO SCH (06:03)
[2020-02-14 08:00] VITALS: BP 118/69
[2020-02-14] MEDS: HEPARIN SODIUM,PORCINE 5,000 UNITS/ML VIAL SQ SCH ×3 (08:51→23:51)
[2020-02-14] MEDS: PANTOPRAZOLE SODIUM 40 MG DR TABLET PO SCH (08:52)
[2020-02-14] MEDS: AmLODIPine BESYLATE 10 MG TABLET PO SCH (08:52)
[2020-02-14] MEDS: FOLIC ACID 1 MG TABLET PO SCH (08:52)
[2020-02-14] MEDS: METOPROLOL TARTRATE 25 MG TABLET PO SCH ×2 (08:52→20:31)
[2020-02-14] MEDS: DOCUSATE SODIUM 100 MG/10 ML LIQUID UDCUP GT SCH (08:53)
[2020-02-14] MEDS: DEXTRAN 70 0.1%/HYPROMELL 0.3% 0.9 ML OPHTHALMIC SOLUTION [PF] OU PRN (08:54)
[2020-02-14] MEDS: -POST HEMODIALYSIS NOTE- MISC SCH (09:00)
[2020-02-14] MEDS ORDERED: POTASSIUM CHLORIDE 10 MEQ ER TABLET PO ONE (10:30)
[2020-02-14 10:32] LABS: LEGIONELLA PNEUMO AG URINE Negative (Negative); ORGANISM ID Not indicated.; S PNEUMO SOURCE Urine; STREP PNEUMONIAE AG URINE Negative (Negative); STREP.PNEUMO BODY FLUID CULT. Not indicated.
[2020-02-14 11:40] LABS: ABG A-A DIFF O2 64.5 mmHg (10-20.0); ABG BASE EXCESS 1.8 mmol/L (-2.0-3.0); ABG CARBOXYHEMOGLOBIN 1.2 % (0.0-1.5); ABG METHEMOGLOBIN 0.3 % (0.0-1.5); ABG OXYGEN CONTENT 12.6 mL/dL (15.0-23.0); ABG OXYGEN SATURATION 97.9 % (95.0-98.0); ABG OXYHEMOGLOBIN 96.4 % (94.0-100.0); ABG PCO2 40 mmHg (35-45); ABG PH 7.436 (7.35-7.450); ABG TOTAL HEMOGLOBIN 9.2 G/dL (12.0-18.0); PO2, ARTERIAL BG 102.8 mmHg (79.0-87.0); SOURCE, BLOOD GAS ARTERIAL; TEMPERATURE, FAHRENHEIT, BG 98.9 FAHREN (96.0-98.6)
[2020-02-14 11:41] LABS: SITE, BLOOD GAS ARTERIAL LINE; VENT MODE, BG CPAP (ROOM AIR)
[2020-02-14 11:42] LABS: CPAP, BG 5 cm H2O; O2 DEVICE,BLOOD GAS VENTILATOR (ROOM AIR); PRESSURE SUPPORT, BG 8 cm H2O
[2020-02-14 12:00] VITALS: BP 159/82
[2020-02-14 16:00] VITALS: BP 140/91
[2020-02-14 20:00] VITALS: BP 159/105
[2020-02-14] MEDS: LEVOFLOXACIN 500 MG/D5% WATER 100 ML IV SCH (20:29)
[2020-02-14] MEDS: LevETIRAcetam 500 MG in DEXTROSE 5%-WATER 100 ML IV SCH (22:40)
[2020-02-15] VITALS: BP 193/92
[2020-02-15] MEDS ORDERED: 0.9% SODIUM CHLORIDE 5 ML NEB SOLUTION NEB ONE (02:36)
[2020-02-15 04:44] VITALS: BP 168/80
[2020-02-15] MEDS: HydrALAZINE HCL 50 MG TABLET PO SCH ×3 (06:00→23:09)
[2020-02-15] MEDS: LEVOTHYROXINE SODIUM 88 MCG TABLET PO SCH (06:30)
[2020-02-15 07:53] LABS: BASOPHILS % (AUTO) 0.3 % (0.0-2.0); EOSINOPHILS % (AUTO) 6.1 % (1.0-6.0); LYMPHOCYTES # (AUTO) 1.6 K/uL (1.0-4.8); LYMPHOCYTES % (AUTO) 11.5 % (22.0-44.0); MEAN CORPUSCULAR HEMOGLOBIN 26.8 pg (26.0-34.0); MEAN CORPUSCULAR HGB CONC 30.8 G/dL (31.0-37.0); MEAN CORPUSCULAR VOLUME 87 fL (80-100); MONOCYTES # (AUTO) 1.4 K/uL (0.1-1.0); MONOCYTES % (AUTO) 10.3 % (2.0-9.0); NEUTROPHILS # (AUTO) 10.1 K/uL (1.8-7.7); NEUTROPHILS % (AUTO) 71.8 % (40.0-70.0); PLATELET COUNT (AUTO) 310 K/uL (150-450); RED CELL DISTRIBUTION WIDTH 15.8 % (11.5-14.5)
[2020-02-15 08:00] VITALS: BP 164/80
[2020-02-15 08:11] LABS: BILIRUBIN,TOTAL 1.4 mg/dL (0.1-1.0); CREATININE 4.37 mg/dL (0.60-1.30); TOTAL PROTEIN, SERUM 6.3 g/dL (6.4-8.2); VANCOMYCIN,RANDOM 17.4 mcg/mL (25.0-50.0)
[2020-02-15] MEDS: DOCUSATE SODIUM 100 MG/10 ML LIQUID UDCUP GT SCH (08:11)
[2020-02-15] MEDS: HEPARIN SODIUM,PORCINE 5,000 UNITS/ML VIAL SQ SCH ×3 (08:11→23:08)
[2020-02-15] MEDS: AmLODIPine BESYLATE 10 MG TABLET PO SCH (08:12)
[2020-02-15] MEDS: PANTOPRAZOLE SODIUM 40 MG DR TABLET PO SCH (08:12)
[2020-02-15] MEDS: METOPROLOL TARTRATE 25 MG TABLET PO SCH ×2 (08:12→20:24)
[2020-02-15] MEDS: FOLIC ACID 1 MG TABLET PO SCH (08:12)
[2020-02-15] MEDS: HydrALAZINE HCL 20 MG/ML VIAL IVP PRN ×2 (08:13→09:28)
[2020-02-15 08:19] LABS: POTASSIUM 2.9 mmol/L (3.5-5.1)
[2020-02-15] MEDS: -POST HEMODIALYSIS NOTE- MISC SCH (09:00)
[2020-02-15] MEDS: POTASSIUM CHL 10 MEQ/WATER 50 ML IV SCH ×3 (09:29→12:14)
[2020-02-15] MEDS ORDERED: VANCOMYCIN HCL 1 GM/D5% WATER 200 ML IV ONE (10:00)
[2020-02-15 12:00] VITALS: BP 147/71
[2020-02-15 16:00] VITALS: BP 191/138
[2020-02-15 20:00] VITALS: BP 168/103
[2020-02-15 20:25] LABS: GLUCOMETER DEV NAME(LOC) 4E.2; GLUCOSE,POINT OF CARE 121 MG/DL (70-110)
[2020-02-15 20:25] LABS: GLUCOMETER DEV NAME(LOC) 4E.2; GLUCOSE,POINT OF CARE 101 MG/DL (70-110)
[2020-02-15] MEDS: ZOLPIDEM TARTRATE 10 MG TABLET PO PRN (20:25)
[2020-02-15] MEDS: LevETIRAcetam 500 MG in DEXTROSE 5%-WATER 100 ML IV SCH (23:08)
[2020-02-16] VITALS (7 sets, daily range): BP systolic 132–176; BP diastolic 76–109
[2020-02-16 05:31] LABS: HEMATOCRIT 26.8 % (36-46); HEMOGLOBIN 8.4 g/dL (12.0-16.0); MEAN CORPUSCULAR HEMOGLOBIN 27.4 pg (26.0-34.0); MEAN CORPUSCULAR HGB CONC 31.3 G/dL (31.0-37.0); MEAN CORPUSCULAR VOLUME 88 fL (80-100); PLATELET COUNT (AUTO) 365 K/uL (150-450); RED BLOOD CELL COUNT(AUTO) 3.06 MIL/uL (4.00-5.20); RED CELL DISTRIBUTION WIDTH 15.8 % (11.5-14.5)
[2020-02-16] MEDS: HydrALAZINE HCL 50 MG TABLET PO SCH ×4 (05:38→23:40)
[2020-02-16] MEDS: LEVOTHYROXINE SODIUM 88 MCG TABLET PO SCH (05:38)
[2020-02-16 05:52] LABS: ALBUMIN 2.2 g/dL (3.4-5.0); BILIRUBIN,TOTAL 1.3 mg/dL (0.1-1.0); C-REACTIVE PROTEIN QUANT 5.58 mg/dL (0.00-0.30); CALCIUM, TOTAL 8.5 mg/dL (8.8-10.5); CREATININE 5.03 mg/dL (0.60-1.30); POTASSIUM 3.5 mmol/L (3.5-5.1); TOTAL PROTEIN, SERUM 6.8 g/dL (6.4-8.2)
[2020-02-16] MEDS: DEXTRAN 70 0.1%/HYPROMELL 0.3% 0.9 ML OPHTHALMIC SOLUTION [PF] OU PRN (08:21)
[2020-02-16] MEDS: HEPARIN SODIUM,PORCINE 5,000 UNITS/ML VIAL SQ SCH ×3 (08:21→23:29)
[2020-02-16] MEDS: DOCUSATE SODIUM 100 MG/10 ML LIQUID UDCUP GT SCH (08:21)
[2020-02-16] MEDS: METOPROLOL TARTRATE 25 MG TABLET PO SCH ×2 (08:22→20:48)
[2020-02-16] MEDS: FOLIC ACID 1 MG TABLET PO SCH (08:22)
[2020-02-16] MEDS: AmLODIPine BESYLATE 10 MG TABLET PO SCH (08:22)
[2020-02-16] MEDS: PANTOPRAZOLE SODIUM 40 MG DR TABLET PO SCH (08:22)
[2020-02-16] MEDS: EPOETIN ALFA 10,000 UNITS/ML VIAL SQ SCH (08:23)
[2020-02-16 08:35] LABS: BAND NEUTROPHILS % (MANUAL) 5 % (0-5); LYMPHOCYTES % (MANUAL) 16 % (22-44); METAMYELOCYTES % 3 % (0-0); MONOCYTES % (MANUAL) 4 % (2-9); SEGMENTED NEUTROPHILS % 72 % (40-70)
[2020-02-16] MEDS: MORPHINE SULFATE 2 MG/ML SYRINGE IVP PRN (08:39)
[2020-02-16] MEDS ORDERED: SODIUM CHLORIDE 0.9% 2,000 ML ONE (09:53)
[2020-02-16] MEDS ORDERED: SODIUM CHLORIDE 0.9% 500 ML IV ONE (20:47)
[2020-02-16] MEDS: LEVOFLOXACIN 500 MG/D5% WATER 100 ML IV SCH (20:49)
[2020-02-16] MEDS ORDERED: HEPARIN SODIUM,PORCINE 1,000 UNITS/ML VIAL ONE (23:31)
[2020-02-16] MEDS: LevETIRAcetam 500 MG in DEXTROSE 5%-WATER 100 ML IV SCH (23:40)
[2020-02-17 00:02] VITALS: BP 142/94
[2020-02-17 05:13] VITALS: BP 150/91
[2020-02-17] MEDS: HydrALAZINE HCL 50 MG TABLET PO SCH ×3 (06:00→17:51)
[2020-02-17] MEDS: LEVOTHYROXINE SODIUM 88 MCG TABLET PO SCH (06:09)
[2020-02-17] MEDS: HEPARIN SODIUM,PORCINE 5,000 UNITS/ML VIAL SQ SCH ×2 (08:00→14:58)
[2020-02-17 08:07] LABS: INR 1.3 (0.9-1.1); PROTHROMBIN TIME 13.9 SEC (9.4-11.6)
[2020-02-17 08:21] VITALS: BP 150/93
[2020-02-17 08:24] LABS: ALBUMIN 2.4 g/dL (3.4-5.0); BILIRUBIN,TOTAL 1.4 mg/dL (0.1-1.0); CALCIUM, TOTAL 8.6 mg/dL (8.8-10.5); CREATININE 3.43 mg/dL (0.60-1.30); POTASSIUM 3.5 mmol/L (3.5-5.1); TOTAL PROTEIN, SERUM 7.1 g/dL (6.4-8.2)
[2020-02-17 08:47] LABS: C-REACTIVE PROTEIN QUANT 4.49 mg/dL (0.00-0.30)
[2020-02-17 09:19] LABS: HEMATOCRIT 26.7 % (36-46); HEMOGLOBIN 8.2 g/dL (12.0-16.0); MEAN CORPUSCULAR HEMOGLOBIN 27.1 pg (26.0-34.0); MEAN CORPUSCULAR HGB CONC 30.7 G/dL (31.0-37.0); MEAN CORPUSCULAR VOLUME 88 fL (80-100); PLATELET COUNT (AUTO) 389 K/uL (150-450); RED BLOOD CELL COUNT(AUTO) 3.02 MIL/uL (4.00-5.20); RED CELL DISTRIBUTION WIDTH 15.9 % (11.5-14.5)
[2020-02-17] MEDS: DOCUSATE SODIUM 100 MG CAPSULE PO SCH (09:24)
[2020-02-17] MEDS: AmLODIPine BESYLATE 10 MG TABLET PO SCH (09:26)
[2020-02-17] MEDS: FOLIC ACID 1 MG TABLET PO SCH (09:26)
[2020-02-17] MEDS: METOPROLOL TARTRATE 25 MG TABLET PO SCH ×2 (09:27→20:42)
[2020-02-17] MEDS: PANTOPRAZOLE SODIUM 40 MG DR TABLET PO SCH (09:27)
[2020-02-17] MEDS ORDERED: LIDOCAINE 1%/EPI 1:200,000/PF 10 ML VIAL ONE (10:18)
[2020-02-17] MEDS ORDERED: HEPARIN SODIUM,PORCINE 1,000 UNITS/ML 10 ML VIAL ONE (10:18)
[2020-02-17] MEDS ORDERED: HEPARIN SODIUM 1000 UNITS/NS 500 ML ONE (10:18)
[2020-02-17] MEDS ORDERED: FentaNYL CITRATE-PF 100 MCG/2 ML VIAL ONE (11:04)
[2020-02-17] MEDS ORDERED: NALOXONE HCL 0.4 MG/ML VIAL ONE (11:05)
[2020-02-17] MEDS ORDERED: MIDAZOLAM HCL 2 MG/2 ML VIAL ONE (11:05)
[2020-02-17] MEDS ORDERED: FLUMAZENIL 0.1 MG/ML 5 ML VIAL IVP ONE (11:05)
[2020-02-17] MEDS: LORazepam 2 MG/ML VIAL IVP PRN (11:08)
[2020-02-17] MEDS ORDERED: SODIUM CHLORIDE 0.9% 250 ML IV ONE (11:20)
[2020-02-17] MEDS ORDERED: FentaNYL CITRATE-PF 100 MCG/2 ML VIAL IVP ONE (12:15)
[2020-02-17] MEDS ORDERED: MIDAZOLAM HCL 2 MG/2 ML VIAL IVP ONE (12:16)
[2020-02-17] MEDS: ACETAMINOPHEN 325 MG TABLET PO PRN ×2 (14:02→20:41)
[2020-02-17 15:01] LABS: BAND NEUTROPHILS % (MANUAL) 8 % (0-5); EOSINOPHILS % (MANUAL) 1 % (1-6); LYMPHOCYTES % (MANUAL) 18 % (22-44); MONOCYTES % (MANUAL) 13 % (2-9); MYELOCYTES % 1 % (0-0); SEGMENTED NEUTROPHILS % 59 % (40-70)
[2020-02-17 15:14] VITALS: BP 155/84
[2020-02-17 20:14] VITALS: BP 152/100
[2020-02-17] MEDS: DEXTRAN 70 0.1%/HYPROMELL 0.3% 0.9 ML OPHTHALMIC SOLUTION [PF] OU PRN (20:42)
[2020-02-17] MEDS: LevETIRAcetam 500 MG in DEXTROSE 5%-WATER 100 ML IV SCH (22:21)
[2020-02-18] VITALS (7 sets, daily range): BP systolic 145–163; BP diastolic 78–101
[2020-02-18] MEDS: HEPARIN SODIUM,PORCINE 5,000 UNITS/ML VIAL SQ SCH ×4 (00:48→23:55)
[2020-02-18] MEDS: HydrALAZINE HCL 50 MG TABLET PO SCH ×5 (00:48→23:56)
[2020-02-18] MEDS ORDERED: 0.9% SODIUM CHLORIDE 5 ML NEB SOLUTION NEB ONE ×2 (01:54→23:05)
[2020-02-18] MEDS: ALBUTEROL SULFATE 2.5 MG/0.5 ML NEB SOLUTION NEB PRN ×2 (01:56→23:06)
[2020-02-18] MEDS: LEVOTHYROXINE SODIUM 88 MCG TABLET PO SCH (05:20)
[2020-02-18 06:16] LABS: HEMATOCRIT 24.3 % (36-46); HEMOGLOBIN 7.5 g/dL (12.0-16.0); MEAN CORPUSCULAR HEMOGLOBIN 27.7 pg (26.0-34.0); MEAN CORPUSCULAR HGB CONC 30.9 G/dL (31.0-37.0); MEAN CORPUSCULAR VOLUME 90 fL (80-100); PLATELET COUNT (AUTO) 407 K/uL (150-450); RED BLOOD CELL COUNT(AUTO) 2.71 MIL/uL (4.00-5.20); RED CELL DISTRIBUTION WIDTH 16.3 % (11.5-14.5)
[2020-02-18 06:46] LABS: ALBUMIN 2.5 g/dL (3.4-5.0); BILIRUBIN,TOTAL 1.4 mg/dL (0.1-1.0); CALCIUM, TOTAL 8.2 mg/dL (8.8-10.5); CREATININE 4.37 mg/dL (0.60-1.30); POTASSIUM 3.5 mmol/L (3.5-5.1); TOTAL PROTEIN, SERUM 6.9 g/dL (6.4-8.2)
[2020-02-18 07:09] LABS: BAND NEUTROPHILS % (MANUAL) 7 % (0-5); EOSINOPHILS % (MANUAL) 2 % (1-6); LYMPHOCYTES % (MANUAL) 16 % (22-44); MONOCYTES % (MANUAL) 11 % (2-9); SEGMENTED NEUTROPHILS % 64 % (40-70)
[2020-02-18 07:37] LABS: C-REACTIVE PROTEIN QUANT 3.24 mg/dL (0.00-0.30); VANCOMYCIN,RANDOM 15.4 mcg/mL (25.0-50.0)
[2020-02-18] MEDS: -POST HEMODIALYSIS NOTE- MISC SCH (09:00)
[2020-02-18] MEDS ORDERED: BENZOCAINE 20% 50 MCG/SPRAY 57 GM ONE (09:15)
[2020-02-18] MEDS ORDERED: FentaNYL CITRATE-PF 100 MCG/2 ML VIAL ONE (09:51)
[2020-02-18] MEDS ORDERED: MIDAZOLAM HCL 2 MG/2 ML VIAL ONE (09:51)
[2020-02-18] MEDS ORDERED: MIDAZOLAM HCL 2 MG/2 ML VIAL IVP ONE (10:15)
[2020-02-18] MEDS ORDERED: FentaNYL CITRATE-PF 100 MCG/2 ML VIAL IVP ONE (10:15)
[2020-02-18] MEDS ORDERED: BENZOCAINE 20% 50 MCG/SPRAY 57 GM TP ONE (10:30)
[2020-02-18] MEDS: METOPROLOL TARTRATE 25 MG TABLET PO SCH ×2 (13:21→20:42)
[2020-02-18] MEDS: DOCUSATE SODIUM 100 MG CAPSULE PO SCH (15:11)
[2020-02-18] MEDS: FOLIC ACID 1 MG TABLET PO SCH (15:11)
[2020-02-18] MEDS: PANTOPRAZOLE SODIUM 40 MG DR TABLET PO SCH (15:11)
[2020-02-18] MEDS: LEVOFLOXACIN 500 MG TABLET PO SCH (15:12)
[2020-02-18] MEDS: AmLODIPine BESYLATE 10 MG TABLET PO SCH (15:12)
[2020-02-18] MEDS ORDERED: HEPARIN SODIUM,PORCINE 1,000 UNITS/ML VIAL ONE (16:26)
[2020-02-18] MEDS ORDERED: VANCOMYCIN HCL 1 GM/D5% WATER 200 ML IV ONE (17:00)
[2020-02-18] MEDS: EPOETIN ALFA 10,000 UNITS/ML VIAL SQ SCH (17:59)
[2020-02-18] MEDS: LevETIRAcetam 250 MG in DEXTROSE 5%-WATER 100 ML IV PRN (18:00)
[2020-02-18] MEDS: MUPIROCIN CALCIUM 2% 22 GM OINTMENT NASAL SCH (20:42)
[2020-02-18] MEDS: LevETIRAcetam 500 MG in DEXTROSE 5%-WATER 100 ML IV SCH (23:55)
[2020-02-18] MEDS: ACETAMINOPHEN 325 MG TABLET PO PRN (23:57)
[2020-02-19] VITALS (7 sets, daily range): BP systolic 111–149; BP diastolic 60–82
[2020-02-19] MEDS: LEVOTHYROXINE SODIUM 88 MCG TABLET PO SCH (06:34)
[2020-02-19] MEDS: HydrALAZINE HCL 50 MG TABLET PO SCH ×4 (06:34→23:15)
[2020-02-19 08:16] LABS: HEMATOCRIT 25.1 % (36-46); HEMOGLOBIN 7.6 g/dL (12.0-16.0); MEAN CORPUSCULAR HEMOGLOBIN 27.8 pg (26.0-34.0); MEAN CORPUSCULAR HGB CONC 30.3 G/dL (31.0-37.0); MEAN CORPUSCULAR VOLUME 92 fL (80-100); PLATELET COUNT (AUTO) 378 K/uL (150-450); RED BLOOD CELL COUNT(AUTO) 2.74 MIL/uL (4.00-5.20); RED CELL DISTRIBUTION WIDTH 16.4 % (11.5-14.5)
[2020-02-19] MEDS: HEPARIN SODIUM,PORCINE 5,000 UNITS/ML VIAL SQ SCH ×3 (08:23→23:15)
[2020-02-19] MEDS: -POST HEMODIALYSIS NOTE- MISC SCH (08:23)
[2020-02-19] MEDS: FOLIC ACID 1 MG TABLET PO SCH (08:24)
[2020-02-19] MEDS: MUPIROCIN CALCIUM 2% 22 GM OINTMENT NASAL SCH ×2 (08:24→20:43)
[2020-02-19] MEDS: DOCUSATE SODIUM 100 MG CAPSULE PO SCH (08:24)
[2020-02-19] MEDS: CHLORHEXIDINE GLUCONATE 4% 118 ML TOPICAL LIQUID TP SCH (08:25)
[2020-02-19] MEDS: AmLODIPine BESYLATE 10 MG TABLET PO SCH (08:25)
[2020-02-19] MEDS: METOPROLOL TARTRATE 25 MG TABLET PO SCH ×2 (08:25→20:43)
[2020-02-19] MEDS: PANTOPRAZOLE SODIUM 40 MG DR TABLET PO SCH (08:25)
[2020-02-19 09:11] LABS: ALBUMIN 2.6 g/dL (3.4-5.0); BILIRUBIN,TOTAL 1.4 mg/dL (0.1-1.0); CALCIUM, TOTAL 9.2 mg/dL (8.8-10.5); CREATININE 3.37 mg/dL (0.60-1.30); POTASSIUM 3.5 mmol/L (3.5-5.1); TOTAL PROTEIN, SERUM 7.2 g/dL (6.4-8.2)
[2020-02-19 09:31] LABS: MAGNESIUM 1.7 mg/dL (1.80-2.40)
[2020-02-19 12:20] LABS: BAND NEUTROPHILS % (MANUAL) 13 % (0-5); EOSINOPHILS % (MANUAL) 1 % (1-6); LYMPHOCYTES % (MANUAL) 8 % (22-44); METAMYELOCYTES % 1 % (0-0); MONOCYTES % (MANUAL) 6 % (2-9); MYELOCYTES % 1 % (0-0); SEGMENTED NEUTROPHILS % 70 % (40-70)
[2020-02-19 12:22] LABS: PLATELET MORPHOLOGY COMMENT LARGE PLTS PRESENT
[2020-02-19] MEDS: DiphenhydrAMINE HCL 25 MG CAPSULE PO PRN (15:59)
[2020-02-19] MEDS ORDERED: 0.9% SODIUM CHLORIDE 5 ML NEB SOLUTION NEB ONE (22:31)
[2020-02-19] MEDS: ALBUTEROL SULFATE 2.5 MG/0.5 ML NEB SOLUTION NEB PRN (22:34)
[2020-02-19] MEDS: LevETIRAcetam 500 MG in DEXTROSE 5%-WATER 100 ML IV SCH (23:16)
[2020-02-20] VITALS (13 sets, daily range): BP systolic 102–141; BP diastolic 58–91
[2020-02-20] MEDS: HydrALAZINE HCL 50 MG TABLET PO SCH ×4 (05:06→23:56)
[2020-02-20] MEDS ORDERED: SODIUM CHLORIDE 0.9% 1,000 ML ONE ×2 (05:54)
[2020-02-20] MEDS: LEVOTHYROXINE SODIUM 88 MCG TABLET PO SCH (06:30)
[2020-02-20] MEDS ORDERED: SODIUM CHLORIDE 0.9% 1,000 ML IV ONE (07:30)
[2020-02-20] MEDS: HEPARIN SODIUM,PORCINE 5,000 UNITS/ML VIAL SQ SCH ×3 (08:00→23:56)
[2020-02-20 08:38] LABS: HEMATOCRIT 23.1 % (36-46); MEAN CORPUSCULAR HEMOGLOBIN 27.8 pg (26.0-34.0); MEAN CORPUSCULAR HGB CONC 29.7 G/dL (31.0-37.0); MEAN CORPUSCULAR VOLUME 94 fL (80-100); PLATELET COUNT (AUTO) 385 K/uL (150-450); RED BLOOD CELL COUNT(AUTO) 2.46 MIL/uL (4.00-5.20); RED CELL DISTRIBUTION WIDTH 16.5 % (11.5-14.5)
[2020-02-20 08:46] LABS: CALCIUM, TOTAL 8.8 mg/dL (8.8-10.5); CREATININE 4.48 mg/dL (0.60-1.30); MAGNESIUM 1.6 mg/dL (1.80-2.40); POTASSIUM 3.4 mmol/L (3.5-5.1)
[2020-02-20 08:47] LABS: HEMOGLOBIN 6.9 g/dL (12.0-16.0)
[2020-02-20 08:52] LABS: INR 1.5 (0.9-1.1); PROTHROMBIN TIME 15.1 SEC (9.4-11.6)
[2020-02-20 08:58] LABS: BAND NEUTROPHILS % (MANUAL) 12 % (0-5); EOSINOPHILS % (MANUAL) 2 % (1-6); LYMPHOCYTES % (MANUAL) 10 % (22-44); METAMYELOCYTES % 1 % (0-0); MONOCYTES % (MANUAL) 7 % (2-9); MYELOCYTES % 1 % (0-0); SEGMENTED NEUTROPHILS % 67 % (40-70)
[2020-02-20] MEDS: CHLORHEXIDINE GLUCONATE 4% 118 ML TOPICAL LIQUID TP SCH ×2 (09:00→10:33)
[2020-02-20] MEDS: DOCUSATE SODIUM 100 MG CAPSULE PO SCH (09:00)
[2020-02-20] MEDS: FOLIC ACID 1 MG TABLET PO SCH (09:00)
[2020-02-20] MEDS: METOPROLOL TARTRATE 25 MG TABLET PO SCH ×2 (09:00→21:55)
[2020-02-20] MEDS: PANTOPRAZOLE SODIUM 40 MG DR TABLET PO SCH (09:00)
[2020-02-20] MEDS: AmLODIPine BESYLATE 10 MG TABLET PO SCH (09:00)
[2020-02-20] MEDS ORDERED: SODIUM CHLORIDE 0.9% 250 ML IV ONE (10:27)
[2020-02-20] MEDS: LevETIRAcetam 250 MG in DEXTROSE 5%-WATER 100 ML IV PRN (10:32)
[2020-02-20] MEDS: -POST HEMODIALYSIS NOTE- MISC SCH (10:33)
[2020-02-20] MEDS: EPOETIN ALFA 10,000 UNITS/ML VIAL SQ SCH (10:33)
[2020-02-20] MEDS: MUPIROCIN CALCIUM 2% 22 GM OINTMENT NASAL SCH ×2 (10:34→21:55)
[2020-02-20] MEDS ORDERED: MAGNESIUM SULFATE 2 GM/WATER 50 ML IV ONE (11:00)
[2020-02-20] MEDS ORDERED: HEPARIN SODIUM,PORCINE 1,000 UNITS/ML VIAL IVP ONE (14:44)
[2020-02-20 15:23] LABS: HEMATOCRIT 27.4 % (36-46); HEMOGLOBIN 8.4 g/dL (12.0-16.0)
[2020-02-20] MEDS ORDERED: LIDOCAINE/PF 1% 30 ML VIAL ONE (16:21)
[2020-02-20] MEDS ORDERED: HEPARIN SODIUM,PORCINE 5,000 UNITS/ML VIAL ONE (16:26)
[2020-02-20] MEDS ORDERED: PROPOFOL 1000 MG/ISO-OSM 100 ML IV ONE (16:32)
[2020-02-20] MEDS ORDERED: OxyCODONE HCL 5 MG IR TABLET PO PRN (19:00)
[2020-02-20] MEDS: LEVOFLOXACIN 500 MG TABLET PO SCH (21:54)
[2020-02-20] MEDS: DiphenhydrAMINE HCL 25 MG CAPSULE PO PRN (21:55)
[2020-02-20] MEDS: LevETIRAcetam 500 MG in DEXTROSE 5%-WATER 100 ML IV SCH (23:56)
[2020-02-21] VITALS (7 sets, daily range): BP systolic 124–154; BP diastolic 61–88
[2020-02-21] MEDS ORDERED: FentaNYL CITRATE-PF 100 MCG/2 ML VIAL IVP ONE (05:24)
[2020-02-21] MEDS ORDERED: PROPOFOL 1% 20 ML VIAL IVP ONE (05:30)
[2020-02-21] MEDS: LEVOTHYROXINE SODIUM 88 MCG TABLET PO SCH (06:28)
[2020-02-21] MEDS: HydrALAZINE HCL 50 MG TABLET PO SCH ×4 (06:28→23:35)
[2020-02-21 07:42] LABS: HEMATOCRIT 26.4 % (36-46); HEMOGLOBIN 8.2 g/dL (12.0-16.0); MEAN CORPUSCULAR HEMOGLOBIN 29.3 pg (26.0-34.0); MEAN CORPUSCULAR VOLUME 95 fL (80-100); PLATELET COUNT (AUTO) 334 K/uL (150-450); RED BLOOD CELL COUNT(AUTO) 2.79 MIL/uL (4.00-5.20); RED CELL DISTRIBUTION WIDTH 16.6 % (11.5-14.5)
[2020-02-21 07:59] LABS: ALBUMIN 2.5 g/dL (3.4-5.0); BILIRUBIN,TOTAL 0.8 mg/dL (0.1-1.0); C-REACTIVE PROTEIN QUANT 3.29 mg/dL (0.00-0.30); CALCIUM, TOTAL 8.1 mg/dL (8.8-10.5); CREATININE 3.76 mg/dL (0.60-1.30); MAGNESIUM 2.4 mg/dL (1.80-2.40); PHOSPHORUS 2.8 mg/dL (2.5-4.9); POTASSIUM 3.5 mmol/L (3.5-5.1); TOTAL PROTEIN, SERUM 6.9 g/dL (6.4-8.2); VANCOMYCIN,RANDOM 14.1 mcg/mL (25.0-50.0)
[2020-02-21] MEDS: HEPARIN SODIUM,PORCINE 5,000 UNITS/ML VIAL SQ SCH ×3 (08:00→23:34)
[2020-02-21] MEDS: AmLODIPine BESYLATE 10 MG TABLET PO SCH (09:00)
[2020-02-21] MEDS: MUPIROCIN CALCIUM 2% 22 GM OINTMENT NASAL SCH ×2 (09:00→23:34)
[2020-02-21] MEDS: -POST HEMODIALYSIS NOTE- MISC SCH (09:00)
[2020-02-21] MEDS: PANTOPRAZOLE SODIUM 40 MG DR TABLET PO SCH (09:35)
[2020-02-21] MEDS: DOCUSATE SODIUM 100 MG CAPSULE PO SCH (09:35)
[2020-02-21] MEDS: FOLIC ACID 1 MG TABLET PO SCH (09:35)
[2020-02-21] MEDS: METOPROLOL TARTRATE 25 MG TABLET PO SCH ×2 (09:35→21:07)
[2020-02-21] MEDS: CHLORHEXIDINE GLUCONATE 4% 118 ML TOPICAL LIQUID TP SCH (09:36)
[2020-02-21] MEDS: ACETAMINOPHEN 325 MG TABLET PO PRN (11:10)
[2020-02-21 12:50] LABS: BAND NEUTROPHILS % (MANUAL) 5 % (0-5); EOSINOPHILS % (MANUAL) 1 % (1-6); LYMPHOCYTES % (MANUAL) 10 % (22-44); MONOCYTES % (MANUAL) 10 % (2-9); MYELOCYTES % 1 % (0-0); SEGMENTED NEUTROPHILS % 73 % (40-70)
[2020-02-21] MEDS: CALCITRIOL 0.25 MCG CAPSULE PO SCH (14:13)
[2020-02-21 15:44] LABS: APPEARANCE,URINE CLOUDY (CLEAR); BILIRUBIN,URINE NEGATIVE (NEGATIVE); GLUCOSE, URINE (UA) NEGATIVE (NEGATIVE); KETONES,URINE NEGATIVE (NEGATIVE); LEUKOCYTE ESTERASE ,URINE LARGE (NEGATIVE); NITRATE,URINE NEGATIVE (NEGATIVE); OCCULT BLOOD,URINE NEGATIVE (NEGATIVE); PH,URINE 5.5 (5.0-8.0); PROTEIN,URINE SEE CONFIRM (NEGATIVE); UROBILINOGEN,URINE 0.2 mg/dL (<=1.0)
[2020-02-21 16:42] LABS: SULFOSALICYLIC ACID,URINE 4+ (Negative)
[2020-02-21 16:43] LABS: YEAST,URINE Many /HPF (None Seen)
[2020-02-21 16:44] LABS: BACTERIA,URINE Few /HPF (None Seen); RBC,URINE None Seen /HPF (0-2); SQUAMOUS EPITHELIAL CELL,UR Rare /LPF (None Seen); WBC,URINE 51-100 /HPF (0-5)
[2020-02-21] MEDS ORDERED: FLUCONAZOLE 200 MG TABLET PO ONE (17:30)
[2020-02-21] MEDS: DiphenhydrAMINE HCL 25 MG CAPSULE PO PRN (21:07)
[2020-02-21] MEDS ORDERED: 0.9% SODIUM CHLORIDE 5 ML NEB SOLUTION NEB ONE (22:58)
[2020-02-21] MEDS: ALBUTEROL SULFATE 2.5 MG/0.5 ML NEB SOLUTION NEB PRN (23:02)
[2020-02-21] MEDS: LevETIRAcetam 500 MG in DEXTROSE 5%-WATER 100 ML IV SCH (23:34)
[2020-02-22] VITALS: BP 179/96
[2020-02-22 04:10] VITALS: BP 157/69
[2020-02-22] MEDS: LEVOTHYROXINE SODIUM 88 MCG TABLET PO SCH (06:04)
[2020-02-22] MEDS: HydrALAZINE HCL 50 MG TABLET PO SCH ×2 (06:05→11:27)
[2020-02-22 07:26] LABS: HEMATOCRIT 26.3 % (36-46); HEMOGLOBIN 8.3 g/dL (12.0-16.0); MEAN CORPUSCULAR HEMOGLOBIN 29.6 pg (26.0-34.0); MEAN CORPUSCULAR HGB CONC 31.6 G/dL (31.0-37.0); MEAN CORPUSCULAR VOLUME 94 fL (80-100); PLATELET COUNT (AUTO) 328 K/uL (150-450); RED BLOOD CELL COUNT(AUTO) 2.81 MIL/uL (4.00-5.20); RED CELL DISTRIBUTION WIDTH 17.2 % (11.5-14.5)
[2020-02-22 07:39] LABS: CALCIUM, TOTAL 8.5 mg/dL (8.8-10.5); CREATININE 4.82 mg/dL (0.60-1.30); POTASSIUM 3.1 mmol/L (3.5-5.1)
[2020-02-22 07:49] LABS: C-REACTIVE PROTEIN QUANT 4.87 mg/dL (0.00-0.30)
[2020-02-22 08:01] LABS: BAND NEUTROPHILS % (MANUAL) 5 % (0-5); BASOPHILS % (MANUAL) 1 % (0-2); EOSINOPHILS % (MANUAL) 2 % (1-6); LYMPHOCYTES % (MANUAL) 8 % (22-44); MONOCYTES % (MANUAL) 5 % (2-9); MYELOCYTES % 1 % (0-0); SEGMENTED NEUTROPHILS % 78 % (40-70)
[2020-02-22 08:03] VITALS: BP 149/89
[2020-02-22] MEDS: AmLODIPine BESYLATE 10 MG TABLET PO SCH (08:26)
[2020-02-22] MEDS: METOPROLOL TARTRATE 25 MG TABLET PO SCH (08:26)
[2020-02-22] MEDS: HEPARIN SODIUM,PORCINE 5,000 UNITS/ML VIAL SQ SCH (08:26)
[2020-02-22] MEDS: CALCITRIOL 0.25 MCG CAPSULE PO SCH (08:26)
[2020-02-22] MEDS: LEVOFLOXACIN 500 MG TABLET PO SCH (08:26)
[2020-02-22] MEDS: FOLIC ACID 1 MG TABLET PO SCH (08:27)
[2020-02-22] MEDS: MUPIROCIN CALCIUM 2% 22 GM OINTMENT NASAL SCH (08:27)
[2020-02-22] MEDS: PANTOPRAZOLE SODIUM 40 MG DR TABLET PO SCH (08:27)
[2020-02-22] MEDS: DOCUSATE SODIUM 100 MG CAPSULE PO SCH (08:27)
[2020-02-22] MEDS ORDERED: FLUCONAZOLE 100 MG TABLET PO SCH (09:00)
[2020-02-22] MEDS ORDERED: POTASSIUM CHLORIDE 20 MEQ ER TABLET PO ONE (10:30)
[2020-02-22 11:29] VITALS: BP 166/92
[2020-02-22] MEDS ORDERED: CALC25 PO (11:38)
[2020-02-22] MEDS ORDERED: LEVE500T53 PO (11:38)
[2020-02-22] MEDS ORDERED: AMLO10TA55 PO (11:38)
[2020-02-22] MEDS ORDERED: METO25 PO (11:38)
[2020-02-22] MEDS ORDERED: CEPH-582 PO (11:38)
[2020-02-22] MEDS ORDERED: CHLO240L TP (11:38)
[2020-02-22] MEDS ORDERED: FLUC100T PO (11:38)
[2020-02-22] MEDS ORDERED: HYDR-2924 PO (11:38)
== END 2020-02-22 14:45 | disposition home health service (06) | DRG 853 ==
LOC: EMS 03:06 → ICU 10:40 → 5S 02-16 15:25
PROVIDERS: ADMIT Internal Medicine; ATTEND Internal Medicine
PROC: 5A1955Z Respiratory Ventilation, Greater than 96 Consecutive Hours (ICD-10-PCS; principal; 2020-02-06)
PROC: 0BH17EZ Insertion of Endotracheal Airway into Trachea, Via Natural or Artificial Opening (ICD-10-PCS; 2020-02-06)
PROC: 5A1D70Z Performance of Urinary Filtration, Intermittent, Less than 6 Hours Per Day (ICD-10-PCS; 2020-02-06)
PROC: 06HY33Z Insertion of Infusion Device into Lower Vein, Percutaneous Approach (ICD-10-PCS; 2020-02-06)
PROC: 5A1D70Z Performance of Urinary Filtration, Intermittent, Less than 6 Hours Per Day (ICD-10-PCS; 2020-02-07)
PROC: 5A1D70Z Performance of Urinary Filtration, Intermittent, Less than 6 Hours Per Day (ICD-10-PCS; 2020-02-09)
PROC: 5A1D70Z Performance of Urinary Filtration, Intermittent, Less than 6 Hours Per Day (ICD-10-PCS; 2020-02-11)
PROC: 05HY33Z Insertion of Infusion Device into Upper Vein, Percutaneous Approach (ICD-10-PCS; 2020-02-12)
PROC: B34JZZ3 Ultrasonography of Left Upper Extremity Arteries, Intravascular (ICD-10-PCS; 2020-02-12)
PROC: 05HY33Z Insertion of Infusion Device into Upper Vein, Percutaneous Approach (ICD-10-PCS; 2020-02-12)
PROC: 5A1D70Z Performance of Urinary Filtration, Intermittent, Less than 6 Hours Per Day (ICD-10-PCS; 2020-02-13)
PROC: 5A1D70Z Performance of Urinary Filtration, Intermittent, Less than 6 Hours Per Day (ICD-10-PCS; 2020-02-16)
PROC: B548ZZA Ultrasonography of Superior Vena Cava, Guidance (ICD-10-PCS; 2020-02-17)
PROC: 0JH63XZ Insertion of Tunneled Vascular Access Device into Chest Subcutaneous Tissue and Fascia, Percutaneous Approach (ICD-10-PCS; 2020-02-17)
PROC: 02HV33Z Insertion of Infusion Device into Superior Vena Cava, Percutaneous Approach (ICD-10-PCS; 2020-02-17)
PROC: B5181ZA Fluoroscopy of Superior Vena Cava using Low Osmolar Contrast, Guidance (ICD-10-PCS; 2020-02-17)
PROC: 5A1D70Z Performance of Urinary Filtration, Intermittent, Less than 6 Hours Per Day (ICD-10-PCS; 2020-02-18)
PROC: B24BZZ4 Ultrasonography of Heart with Aorta, Transesophageal (ICD-10-PCS; 2020-02-18)
PROC: 03180JV Bypass Left Brachial Artery to Superior Vena Cava with Synthetic Substitute, Open Approach (ICD-10-PCS; 2020-02-20)
PROC: 5A1D70Z Performance of Urinary Filtration, Intermittent, Less than 6 Hours Per Day (ICD-10-PCS; 2020-02-20)
DX: A41.9 Sepsis, unspecified organism (principal); G93.41 Metabolic encephalopathy; J96.00 Acute respiratory failure, unspecified whether with hypoxia or hypercapnia; N17.0 Acute kidney failure with tubular necrosis; I50.31 Acute diastolic (congestive) heart failure; J15.9 Unspecified bacterial pneumonia; N18.6 End stage renal disease; E87.2 Acidosis; I13.2 Hypertensive heart and chronic kidney disease with heart failure and with stage 5 chronic kidney disease, or end stage renal disease; N39.0 Urinary tract infection, site not specified; Q61.3 Polycystic kidney, unspecified; E87.5 Hyperkalemia; J45.909 Unspecified asthma, uncomplicated; E03.9 Hypothyroidism, unspecified; E66.9 Obesity, unspecified; E11.22 Type 2 diabetes mellitus with diabetic chronic kidney disease; B95.62 Methicillin resistant Staphylococcus aureus infection as the cause of diseases classified elsewhere; B96.89 Other specified bacterial agents as the cause of diseases classified elsewhere; D63.1 Anemia in chronic kidney disease; E87.70 Fluid overload, unspecified; Z20.818 Contact with and (suspected) exposure to other bacterial communicable diseases; B95.7 Other staphylococcus as the cause of diseases classified elsewhere; Z79.899 Other long term (current) drug therapy; Z82.71 Family history of polycystic kidney; Z99.2 Dependence on renal dialysis; Z91.013 Allergy to seafood; Z79.891 Long term (current) use of opiate analgesic; Z79.01 Long term (current) use of anticoagulants; Z90.710 Acquired absence of both cervix and uterus
CPT/HCPCS: 36245; 36561; 36569; 36600; 70450; 71260; 76770; 76937; 82270; 82728; 82805; 83540; 83550; 83605; 83735; 83970; 84100; 84132; 84443; 85014; 85018; 85379; 86140; 86850; 86900; 86901; 86923; 87040; 87070; 87081; 87086; 87205; 87340; 87449; 87899; 92526; 92610; 93005; 93306; 93312; 93970; 94002; 94003; 94640; 94660; 95816; 97116; 97162; 99291; G0378; J0360; J0610; J0690; J0712; J0885; J1644; J1815; J1940; J1956; J2060; J2250; J2270; J2310; J2543; J2704; J2930; J3010; J3370; J3475; J3480; J3490; J7030; J7040; J7050; J7060; P9016; 36415-L1; 36415-TC; 71045-TC; 80202-TC; 87635; J7613; U0003-CS

== ENCOUNTER 2020-04-26 05:30 | Day surgery (SDC) | payer MEDICARE, OTHER ==
[2020-04-23 11:26] LABS: BASOPHILS % (AUTO) 0.6 % (0.0-2.0); EOSINOPHILS % (AUTO) 1.5 % (1.0-6.0); HEMATOCRIT 39.7 % (36-46); HEMOGLOBIN 12.6 g/dL (12.0-16.0); LYMPHOCYTES # (AUTO) 1.2 K/uL (1.0-4.8); LYMPHOCYTES % (AUTO) 22.1 % (22.0-44.0); MEAN CORPUSCULAR HEMOGLOBIN 27.8 pg (26.0-34.0); MEAN CORPUSCULAR HGB CONC 31.8 G/dL (31.0-37.0); MEAN CORPUSCULAR VOLUME 87 fL (80-100); MONOCYTES # (AUTO) 0.5 K/uL (0.1-1.0); NEUTROPHILS # (AUTO) 3.6 K/uL (1.8-7.7); NEUTROPHILS % (AUTO) 66.8 % (40.0-70.0); PLATELET COUNT (AUTO) 248 K/uL (150-450); RED BLOOD CELL COUNT(AUTO) 4.55 MIL/uL (4.00-5.20); RED CELL DISTRIBUTION WIDTH 17.9 % (11.5-14.5)
[2020-04-23 11:36] LABS: CALCIUM, TOTAL 9.3 mg/dL (8.8-10.5); CREATININE 4.89 mg/dL (0.60-1.30); POTASSIUM 4.5 mmol/L (3.5-5.1)
[2020-04-23 11:40] LABS: PROTHROMBIN TIME 10.5 SEC (9.4-11.6)
[2020-04-23 11:52] LABS: ALBUMIN 3.7 g/dL (3.4-5.0); BILIRUBIN,TOTAL 0.4 mg/dL (0.1-1.0); TOTAL PROTEIN, SERUM 8.7 g/dL (6.4-8.2)
[~2020-04-26] VITALS: Ht 160 cm; Wt 79.1 kg
[~2020-04-26 05:30] MED LIST: ALBU2.5V2 IH; CLON0.3T PO; FLUT1AER IH; FOLI0.4T92 PO; LEVO88TA4 PO; METO50TA9 PO; MONT-35 PO
[2020-04-26] MEDS ORDERED: SODIUM CHLORIDE 0.9% 1,000 ML ONE (05:32)
[2020-04-26] MEDS ORDERED: CeFAZolin 1 GM/DEXTROSE 0 ML IV ONE (06:08)
[2020-04-26] MEDS ORDERED: LIDOCAINE/PF 1% 30 ML VIAL ONE (06:32)
[2020-04-26] MEDS ORDERED: SODIUM CHLORIDE 0.9% 250 ML IV ONE (06:32)
[2020-04-26] MEDS ORDERED: HEPARIN SODIUM,PORCINE 1,000 UNITS/ML VIAL ONE (06:33)
[2020-04-26] MEDS ORDERED: SODIUM CHLORIDE 0.9% 500 ML IV ONE (06:35)
[2020-04-26] MEDS ORDERED: BACITRACIN 50,000 UNITS/VIAL ONE (06:35)
[2020-04-26] MEDS ORDERED: SODIUM CHLORIDE 0.9% 1,000 ML IV ONE (07:00)
[2020-04-26] MEDS ORDERED: CLINDAMYCIN 600 MG/D5% WATER 50 ML IV ONE (07:00)
[2020-04-26] MEDS ORDERED: VANCOMYCIN HCL 1 GM/D5% WATER 200 ML IV ONE (07:00)
[2020-04-26] MEDS ORDERED: ACET-784 PO ×2 (07:55→07:56)
[2020-04-26] MEDS ORDERED: ACETAMINOPHEN 325 MG TABLET PO ONE (08:00)
[2020-04-26] MEDS ORDERED: OxyCODONE HCL 5 MG IR TABLET PO ONE (08:00)
[2020-04-26] MEDS ORDERED: PROTAMINE SULFATE 10 MG/ML 5 ML VIAL ONE (09:54)
[2020-04-26] MEDS ORDERED: PROTAMINE SULFATE 10 MG/ML 5 ML VIAL IVP ONE (10:00)
[2020-04-26] MEDS ORDERED: ACETAMINOPHEN 1000 MG/ISO-OSM 100 ML IV ONE ×2 (10:35→10:45)
[2020-04-26] MEDS ORDERED: FentaNYL CITRATE-PF 100 MCG/2 ML VIAL IVP PRN ×3 (10:45)
[2020-04-26] MEDS ORDERED: ONDANSETRON HCL 4 MG/2 ML VIAL IVP PRN (10:45)
[2020-04-26] MEDS ORDERED: PROPOFOL 1% 20 ML VIAL IVP ONE (12:00)
[2020-04-26] MEDS ORDERED: HEPARIN SODIUM,PORCINE 1,000 UNITS/ML 10 ML VIAL IVP ONE (12:00)
[2020-04-26] MEDS ORDERED: FentaNYL CITRATE-PF 100 MCG/2 ML VIAL IVP ONE (12:00)
[2020-04-26] MEDS ORDERED: LIDOCAINE/PF 2% 5 ML VIAL INJ ONE (12:00)
[2020-04-26] MEDS ORDERED: MIDAZOLAM HCL 2 MG/2 ML VIAL IVP ONE (12:00)
== END 2020-04-26 12:00 | disposition home or self-care (01) ==
LOC: SURGERY 05:30
DX: I12.0 Hypertensive chronic kidney disease with stage 5 chronic kidney disease or end stage renal disease (principal); N18.6 End stage renal disease; Z91.041 Radiographic dye allergy status; Z88.8 Allergy status to other drugs, medicaments and biological substances; Z91.013 Allergy to seafood; Z98.890 Other specified postprocedural states; E03.9 Hypothyroidism, unspecified; J45.909 Unspecified asthma, uncomplicated; Z90.710 Acquired absence of both cervix and uterus; E66.3 Overweight
CPT/HCPCS: 36415; 36825; 80053; 85025; 85610; 85730; 87426; 93005; C1716; J0131; J1644 ×2; J2250; J2704; J2720; J3010; J3490 ×4; J7030; J7040; J7050; J0690; J3370